=== PATIENT | male | born 1990 | race Caucasian/White ===

== ENCOUNTER 2022-04-30 13:28 | Emergency (ER) | payer BC, OTHER ==
[2022-04-30] MEDS ORDERED: Ondansetron 4 MG Tab.DIS PO ONE (13:29)
[2022-04-30] MEDS ORDERED: Sodium Chloride 0.9% 1,000 ML IV ONE (15:54)
[2022-04-30] MEDS ORDERED: Ondansetron 4 MG/2 ML SDV IVPUSH ONE (15:54)
[2022-04-30 16:37] LABS: ANION GAP 13.6 mEq/L (7-13)
[2022-04-30] MEDS ORDERED: Ondansetron 4 MG Tab.DIS ONE (17:38)
== END 2022-04-30 17:42 | disposition home or self-care (01) ==
LOC: DL.ED 13:28
DX: K52.9 Noninfective gastroenteritis and colitis, unspecified (principal); K59.00 Constipation, unspecified
CPT/HCPCS: 74019; 80053; 81003; 83605; 85025; 96361; 96374; 99284; A9270; J2405; J7030

== ENCOUNTER 2023-01-13 16:15 | Emergency (ER) | payer BC, OTHER ==
[2023-01-13] MEDS ORDERED: Amoxicillin/Clavulanate K 875-125 MG Tab PO ONE (18:06)
[2023-01-13] MEDS ORDERED: Bacitracin Oint 1 GM U/D Packet TOP ONE (18:08)
== END 2023-01-13 18:24 | disposition home or self-care (01) ==
LOC: DL.ED 16:15
DX: S61.452A Open bite of left hand, initial encounter (principal); W54.0XXA Bitten by dog, initial encounter
CPT/HCPCS: 73130; 99283; A9270; 99282